=== PATIENT | female | born 1995 | race Caucasian/White ===

== ENCOUNTER → 2017-04-24 | Outpatient (CLI) | payer OTHER ==
[~2017-04-24] MED LIST: PROHANCE 279.3MG/ML 15ML VIAL (A9576) As Ordered ONE
--- NOTE | 2017-04-24 17:07 | REP ---
MRI brain without and with contrast: History: Left-sided headache. CONTRAST: ProHance 13 mL There are no areas of abnormal signal intensity in the brain. There is no intraparenchymal hemorrhage, infarct, mass or midline shift. There is no abnormal enhancement. The ventricular system is normal in appearance. There is no extracerebral collection. Minimal mucosal thickening is present in the maxillary sinuses. IMPRESSION: There is no intracranial lesion. Signed by Hakeem Norton MD 04/25/2017 08:10 A
== END ==
LOC: M RAD 13:19
PROVIDERS: ATTEND Psychiatry & Neurology Neurology
DX: H47.333 Pseudopapilledema of optic disc, bilateral (principal)
CPT/HCPCS: 70553; A9576

== ENCOUNTER 2024-07-23 13:10 | Emergency (ER) | payer BC ==
[~2024-07-23] VITALS: Ht 162.6 cm; Wt 82.7 kg
[2024-07-23] MEDS ORDERED: SYNT50TA (13:28)
[2024-07-23] MEDS ORDERED: BENA25CA4 PO (13:28)
[2024-07-23] MEDS ORDERED: MONT10TA97 (13:28)
[2024-07-23] MEDS ORDERED: ALBU8.5H (13:28)
[2024-07-23] MEDS ORDERED: CETI10CA2 PO (13:28)
[2024-07-23] MEDS ORDERED: FLUO60TA (13:28)
[2024-07-23] MEDS ORDERED: EPIN0.3I11 (13:28)
[2024-07-23 15:00] VITALS: BP 96/66; TEMP 97.5; O2SAT 100
== END 2024-07-23 15:15 | disposition home or self-care (01) ==
LOC: M ED 13:10
DX: T78.01XA Anaphylactic reaction due to peanuts, initial encounter (principal); Z79.899 Other long term (current) drug therapy